=== PATIENT | female | born 1965 ===

== ENCOUNTER → 2024-07-02 15:11 | Outpatient (REF) | payer SELFPAY | LOC: LAB 15:11 | PROVIDERS: ATTENDING PHYSICIAN Surgery | DX: D12.5 Benign neoplasm of sigmoid colon (principal); D12.4 Benign neoplasm of descending colon; D12.2 Benign neoplasm of ascending colon; D49.0 Neoplasm of unspecified behavior of digestive system | CPT/HCPCS: 88305 ==

== ENCOUNTER → 2024-07-08 11:17 | Outpatient (REF) | payer OTHER, SELFPAY | LOC: MRI 3T 11:17 | PROVIDERS: ATTENDING PHYSICIAN Surgery | DX: C19 Malignant neoplasm of rectosigmoid junction (principal) | CPT/HCPCS: 72197; A9575 ==

== ENCOUNTER 2024-07-28 11:24 | Inpatient (IN) | payer OTHER, SELFPAY ==
[2024-07-21 08:58] LABS: Hematocrit 35.7 % (37.0-47.0); Hemoglobin 11.9 g/dL (12.0-16.0); Mean Corp Hgb Conc. 33.3 g/dL (33.0-37.0); Mean Corpuscular Hgb 30.7 pg (27.0-31.0); Mean Corpuscular Volume 92.2 fL (81.0-99.0); Mean Platelet Volume 8.7 fL (7.4-10.4); Platelet Count 256 10^3/uL (130-400); Red Blood Cell Count 3.87 10^6/uL (4.20-5.40); Red Cell Dist. Width 12.3 % (11.5-14.5)
[2024-07-21 09:08] LABS: INR 0.89; PT 12.5 Sec (11.4-14.6)
[2024-07-21 09:21] LABS: ALT (SGPT) 21 U/L (0-35); AST (SGOT) 28 U/L (14-36); Albumin 4.3 g/dl (3.5-5.0); Alkaline Phosphatase 60 U/L (38-126); Blood Urea Nitrogen 18 mg/dl (7-17); Calcium 9.5 mg/dl (8.4-10.2); Carbon Dioxide 29 mmol/L (22-30); Chloride 102 mmol/L (98-107); Glucose 97 mg/dl (70-99); Potassium 4.3 mmol/L (3.5-5.1); Sodium 139 mmol/L (135-145); Total Bilirubin 0.4 mg/dl (0.2-1.3); Total Protein 7.1 g/dl (6.3-8.2); eGFR > 60.00
[2024-07-21 10:43] LABS: Glycohemoglobin (HgbA1c) 5.5 % (4.0-5.6)
[2024-07-21 12:17] VITALS: BMI 20.6
[2024-07-28] VITALS (15 sets, daily range): BP systolic 95–126; BP diastolic 60–84; BMI 20.6
[2024-07-28] MEDS: NORMOSOL-R/PLASMALYTE-A 1000 IV ×2 (11:45→18:01)
[2024-07-28] MEDS: TYLENOL 1000 MG PO (11:50)
[2024-07-28] MEDS: ENTEREG 12 MG PO (11:50)
[2024-07-28] MEDS: HEPARIN 5000 UNITS SC (11:57)
--- NOTE | 2024-07-28 15:32 | W.OR.COLCA ---
Colon Cancer Post Op Note
Immediate Post Op
Primary Surgeon: Chad Leyva MD
Devulcanizer Loader: Rebecca Leiva
Pre-op Diagnosis: Sigmoid colon cancer
Post-op Diagnosis: Same
Procedure Performed: Robotic sigmoid colectomy with intracorporeal anastomosis
Anesthesia Type: GET
Specimen / Cultures: Sigmoid colon (suture is proximal)
Estimated Blood Loss: 15cc
Complications: None
Operative Findings: No evidence of metastatic disease
Tumor and ink in the distal sigmoid colon
28mm EEA
Normal leak test
Patient's family updated in the waiting room.
Colon Resection
Colon Resection
Operation performed with curative intent: Yes
Tumor Location: Sigmoid Colon
Sigmoid Resection: Inferior Mesenteric
[2024-07-28] MEDS: TORADOL 15 MG IV ×2 (16:03→22:32)
[2024-07-28] MEDS: TYLENOL 650 MG PO (16:14)
[2024-07-28] MEDS: TYLENOL PO ×2 (20:00→23:42)
[2024-07-29] MEDS: NORMOSOL-R/PLASMALYTE-A 1000 IV (03:20)
[2024-07-29 04:18] VITALS: BP 104/59
[2024-07-29] MEDS: TORADOL 15 MG IV ×4 (05:07→22:12)
[2024-07-29] MEDS: TYLENOL 650 MG PO ×6 (05:07→23:44)
[2024-07-29 05:25] VITALS: BMI 19.9
--- NOTE | 2024-07-29 05:28 | PTCARENOTE ---
Pt had small incontinent BM @ this time
[2024-07-29 06:50] LABS: % Basophils 0.1 % (0-2); % Immature Granulocytes 0.3 % (0-0.5); % Lymphocytes 16.6 % (20.5-51.1); % Monocytes 5.2 % (1.7-9.3); % Neutrophils 77.8 % (42.2-75.2); Absolute Lymphocytes 1.1 10^3/uL (1.2-3.4); Absolute Monocytes 0.4 10^3/uL (0.1-0.6); Absolute Neutrophils 5.3 10^3/uL (1.4-6.5); Hematocrit 32.2 % (37.0-47.0); Hemoglobin 10.4 g/dL (12.0-16.0); Mean Corp Hgb Conc. 32.3 g/dL (33.0-37.0); Mean Corpuscular Hgb 30.1 pg (27.0-31.0); Mean Corpuscular Volume 93.3 fL (81.0-99.0); Nucleated Red Blood Cells % 0 %; Platelet Count 224 10^3/uL (130-400); Red Blood Cell Count 3.45 10^6/uL (4.20-5.40); Red Cell Dist. Width 12.2 % (11.5-14.5); White Blood Cell Count 6.9 10^3/uL (4.8-10.8)
[2024-07-29 07:14] LABS: Blood Urea Nitrogen 11 mg/dl (7-17); Carbon Dioxide 26 mmol/L (22-30); Chloride 102 mmol/L (98-107); Estimated Creatinine Clearance 88 ml/min; Glucose 97 mg/dl (70-99); Potassium 3.9 mmol/L (3.5-5.1); Sodium 136 mmol/L (135-145); eGFR > 60.00
[2024-07-29 07:30] VITALS: BP 113/67
--- NOTE | 2024-07-29 08:41 | W.PN.CRS1 ---
Today's Communication / Plan
-
low residue
lovenox
d/c romero
d/c ivfs
Assessment/Plan
-
POD#1 Robotic sigmoid colectomy with intracorporeal anastomosis
-Labs and vitals normal
-Advance diet to low residue
-OOB as tolerated
-Pain control: Tylenol/Toradol standing, Dilaudid PRN
-OR pathology pending
-Start lovenox for dvt prophylaxis, TEDS/SCDS in place
-D/C IVFs
-D/C romero
Subjective Data
Procedure
07/28/2024- Robotic sigmoid colectomy with intracorporeal anastomosis
Subjective Data
Date of Service: July 29, 2024
Patient states she feels okay. She denies nausea or vomiting. Her pain is controlled. She had loose stools yesterday.
Objective Data
-
Vital Signs
Temp Pulse Resp BP Pulse Ox
98.4 F 81 16 113/67 98
07/29/24 07:30 07/29/24 07:30 07/29/24 07:30 07/29/24 07:30 07/29/24 07:30
Intake & Output
07/28/24 07/29/24 07/30/24
06:59 06:59 06:59
Intake Total 2410 / 2410
Output Total 950 / 950
Balance 1460 / 1460
Intake:
Oral fluids 960 / 960
IV fluids (Total) 1450 / 1450
Normosol 250 / 250
Output:
Urine, Romero 950 / 950
Lab Results
07/29/24 06:02
07/29/24 06:02
Physical Exam
-
General: No Acute Distress and AOx3
Abdomen: Soft, Non Distended and Tender (mild around incisions)
Skin: Warm and Dry
Incision: Clear, Dry, Intact
[2024-07-29] MEDS: ENTEREG 12 MG PO ×2 (09:09→20:00)
--- NOTE | 2024-07-29 10:46 | CM ---
Patient seen at bedside with
POD#1 Robotic sigmoid colectomy with intracorporeal anastomosis
IA Completed.
Conley removed this am - per nsg low residue for lunch
Lives in a 1 1/2 story home with , 5 steps to enter, 5 steps to 2nd floor
PLOF: independent
Denies DME
Denies HH/Rehab
PCP: Bekah Monreal
Pharmacy: [facility]
PLAN: Home, no needs anticipated
to transport
[2024-07-29 11:12] VITALS: BP 114/64
[2024-07-29] MEDS: NORMOSOL-R/PLASMALYTE-A IV (14:44)
[2024-07-29 15:25] VITALS: BP 100/60
[2024-07-29] MEDS: LOVENOX 40 MG SC (17:52)
[2024-07-29 23:30] VITALS: BP 104/57
[2024-07-30] MEDS: TORADOL 15 MG IV ×2 (04:55→09:35)
[2024-07-30] MEDS: TYLENOL 650 MG PO ×3 (04:56→11:56)
[2024-07-30 06:00] VITALS: BMI 20.3
[2024-07-30 07:45] VITALS: BP 110/68
[2024-07-30] MEDS: ENTEREG 12 MG PO (08:35)
--- NOTE | 2024-07-30 08:58 | W.DS.TRANS ---
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
-
Discharge Instructions:
Sleep Apnea Risk Low
Discharge Diagnosis/Procedures Robotic sigmoid colectomy with intracorporeal
anastomosis
Diet Low Residue
Activity No strenuous activity
Additional Activity No lifting over 10lbs (gallon of milk)
Driving Restrictions No driving for 1 week
Bathing Restrictions OK to Shower
Wound Care Allow glue to naturally fall off. Do not pick at
incisions.
Instructions: Low-fiber diet
Stand-Alone Forms:
Changes to Home Medications: No
Discharge Medications:
Home Medication Changes
Pending Results: Yes
Additional Pending Results:
OR pathology
--- NOTE | 2024-07-30 09:23 | W.PN.CRS1 ---
Today's Communication / Plan
-
discharge
Assessment/Plan
-
POD#2 Robotic sigmoid colectomy with intracorporeal anastomosis
-Labs and vitals normal
-Continue low residue diet
-OOB as tolerated
-Pain control: Tylenol/Toradol standing, Dilaudid PRN
-OR pathology pending
-Start lovenox for dvt prophylaxis, TEDS/SCDS in place
-Voiding post romero removal
-Okay for discharge today. All discharge instructions discussed with patient including medications, activity levels, and follow up. All questions answered.
Subjective Data
Procedure
07/28/2024- Robotic sigmoid colectomy with intracorporeal anastomosis
Subjective Data
Date of Service: July 30, 2024
Patient states she feels well. She is having bowel movements with no blood noted. She denies nausea or vomiting. She denies pain. She is urinating without issue.
Objective Data
-
Vital Signs
Temp Pulse Resp BP Pulse Ox
97.7 F 68 16 110/68 98
07/30/24 07:45 07/30/24 07:45 07/30/24 07:45 07/30/24 07:45 07/30/24 07:45
Intake & Output
07/29/24 07/30/24 07/31/24
06:59 06:59 06:59
Intake Total 2410 / 2410 1340 / 1340
Output Total 950 / 950 900 / 900
Balance 1460 / 1460 440 / 440
Intake:
Oral fluids 960 / 960 840 / 840
IV fluids (Total) 1450 / 1450 500 / 500
Normosol 250 / 250
Output:
Urine, Romero 950 / 950 350 / 350
Urine, Voided 550 / 550
Other:
Number of approximated MODERATE 2
amounts of urine
Lab Results
07/29/24 06:02
07/29/24 06:02
Physical Exam
-
General: No Acute Distress and AOx3
Abdomen: Soft, Non Distended and Non Tender
Skin: Warm and Dry
Incision: Clear, Dry, Intact
--- NOTE | 2024-07-30 11:00 | CM ---
Patient seen at bedside.
Discharge today
IMM n/a
PLAN: Home, no needs
to transport
[2024-07-30 11:50] VITALS: BP 116/78
== END 2024-07-30 12:33 | disposition home or self-care (01) | DRG 331 ==
LOC: 2 SOUTH 11:24
PROVIDERS: ADMITTING PHYSICIAN Surgery; FAMILY PHYSICIAN Internal Medicine Rheumatology
PROC: 0DTN4ZZ Resection of Sigmoid Colon, Percutaneous Endoscopic Approach (ICD-10-PCS; 2024-07-28)
PROC: 8E0W4CZ Robotic Assisted Procedure of Trunk Region, Percutaneous Endoscopic Approach (ICD-10-PCS; 2024-07-28)
DX: C18.7 Malignant neoplasm of sigmoid colon (principal); Z90.710 Acquired absence of both cervix and uterus; K66.0 Peritoneal adhesions (postprocedural) (postinfection); D53.9 Nutritional anemia, unspecified
CPT/HCPCS: 88309; 36415; 80048; 80053; 83036; 85025; 85027; 85610; 85730; 86850; 86900; 86901; J1335